=== PATIENT | male | born 1965 | race Caucasian/White ===

== ENCOUNTER 2025-04-26 21:25 | Emergency (ER) | payer OTHER ==
[~2025-04-26] VITALS: Ht 182.9 cm; Wt 96.0 kg
[2025-04-26 21:27] VITALS: O2SAT 99
[2025-04-26] MEDS: TETRACAINE 0.5% OPHTH DROPS 4ML BOTHEYE ONE (23:34)
[2025-04-27] MEDS ORDERED: OFLO5DRO4 EACH EAR (00:17)
[2025-04-27 00:21] VITALS: BP 148/80; PULSE 73; RESP 16; TEMP 36.7; O2SAT 97
== END 2025-04-27 00:30 | disposition home or self-care (01) ==
LOC: ER 21:25
DX: H10.213 Acute toxic conjunctivitis, bilateral (principal); I10 Essential (primary) hypertension; Z88.0 Allergy status to penicillin
CPT/HCPCS: 99283

== ENCOUNTER 2025-10-25 18:50 | Emergency (ER) | payer OTHER ==
[~2025-10-25] VITALS: Ht 185.4 cm; Wt 91.0 kg
[~2025-10-25 18:50] MED LIST: OFLO5DRO4 EACH EAR
[2025-10-25 18:54] VITALS: TEMP 37.1; O2SAT 99
[2025-10-26 00:38] VITALS: TEMP 98.8
[2025-10-26] MEDS: ACETAMINOPHEN 325MG TABLET PO ONE (00:38)
[2025-10-26] MEDS: LIDOCAINE 5% PATCH TOP SCH (00:57)
[2025-10-26] MEDS ORDERED: IBUP-1455 MT (02:59)
[2025-10-26] MEDS ORDERED: LIDO-53 TP (02:59)
[2025-10-26] MEDS ORDERED: CYCL10TA21 MT (02:59)
[2025-10-26 03:32] VITALS: BP 138/81; PULSE 68; RESP 15; O2SAT 100
== END 2025-10-26 03:34 | disposition home or self-care (01) ==
LOC: ER 18:50
DX: M54.50 Low back pain, unspecified (principal); M54.2 Cervicalgia; I10 Essential (primary) hypertension; Z79.899 Other long term (current) drug therapy
CPT/HCPCS: 72131; 99284